=== PATIENT | male | born 1975 | race Two or more races ===

== ENCOUNTER 2019-06-30 13:54 | Outpatient (CLI) | payer OTHER | END 2019-06-30 14:11 | disposition home or self-care (01) | LOC: LAB 13:54 | DX: J11.1 Influenza due to unidentified influenza virus with other respiratory manifestations (principal); R10.11 Right upper quadrant pain; R05 Cough; Z13.6 Encounter for screening for cardiovascular disorders ==

== ENCOUNTER → 2019-07-01 | Outpatient (CLI) | payer OTHER | END | disposition home or self-care (01) | LOC: MAMO-SONO 08:30 | DX: R10.11 Right upper quadrant pain (principal) ==